=== PATIENT | female | born 1990 ===

== ENCOUNTER 2021-01-20 16:50 | Inpatient (IN) ==
[2021-01-20] MEDS ORDERED: LACTATED RINGERS 1,000 ML IV ONE (17:00)
[2021-01-20 17:29] LABS: Basophils % 0.2 % (0.0-0.8); Eosinophils # 0.1 10*3/uL (0.0-0.87); Eosinophils % 0.5 % (0.00-10.9); Hematocrit 29.7 VOL% (35.7-47.0); Immature Granulocytes % 1.4 %; Immature Granulocytes Absolute 0.14 #; Lymphocytes # 1.8 10*3/uL (1.4-4.0); Lymphocytes % 17.4 % (21.3-54.2); Mean Corpuscular HGB Conc 33.7 GM/DL (32-36); Mean Corpuscular Volume 89.5 FL (87-102); Mean Platelet Volume 12.4 FL (9.6-12.0); Monocytes % 5.2 % (1.7-12.7); Neutrophils % 75.3 % (38.7-73.9); Platelet Count 189 T/CUMM (130-400); Red Blood Count 3.32 MC/CUMM (3.8-5.5); Red Cell Distribution Width 13.5 % (9.3-17.3); White Blood Count 10.2 T/CUMM (4-12)
[2021-01-20 18:24] LABS: Bilirubin,Urine Negative (Negative); Blood, Urine Negative (Negative); Glucose,Urine (UA) Negative (Negative); Ketones,Urine Negative (Negative); Nitrite,Urine Negative (Negative); Protein,Urine 100 MG/DL; RBC,Urine 1 /HPF (0-4); Squamous Epithelial Cell,Urine Occasional /HPF (0-10); Urine Appearance CLEAR (Clear); Urine Color Yellow (Yellow); Urine Specific Gravity 1.012 (1.001-1.035); Urine Urobilinogen < 2.0 EU/DL (0.2-1.0)
[2021-01-20] MEDS ORDERED: NIFEdipine 10 MG CAPSULE PO STA (19:20)
[2021-01-20] MEDS ORDERED: BETAMETH SODIUM PHOS/ACETATE 30 MG/5 ML VIAL IM SCH (19:30)
[2021-01-20 19:44] LABS: Alanine Aminotransferase 13 U/L (13-56); Albumin 2.4 G/DL (3.4-5.0); Alkaline Phosphatase 103 U/L (45-117); Aspartate Amino Transferase 13 U/L (0-37); Bilirubin,Direct < 0.100 MG/DL (0.0-0.20); Bilirubin,Total < 0.39 MG/DL (0.2-1.0); Blood Urea Nitrogen 7 MG/DL (7-18); Calcium 8.3 MG/DL (8.5-10.1); Carbon Dioxide 23 MMOL/L (21-32); Estimated Glom Filtration Rate 128 ML/MIN; Glucose 89 MG/DL (74-106); Osmolality,Calculated 273.5 MOS/KG (273-304); Potassium 3.8 MMOL/L (3.5-5.1); Sodium 139 MMOL/L (136-145); Total Protein 6.1 G/DL (6.4-8.2); Uric Acid 6.5 MG/DL (2.6-6.0)
[2021-01-20 19:45] LABS: INR 0.9; PT Patient Result 10.4 SECS (10.5-12.0); Partial Thromboplastin Time 25.6 SECS (23.9-33.8)
[2021-01-20] MEDS ORDERED: CITRIC ACID/SODIUM CITRATE 30 ML UDCUP PO PRN (20:14)
[2021-01-20] MEDS ORDERED: FAMOTIDINE 20 MG/2 ML VIAL IV PRN (20:14)
[2021-01-20] MEDS ORDERED: ceFAZolin 2,000 MG/50 ML DUPLEX IV ONE (20:14)
[2021-01-20] MEDS ORDERED: MAGNESIUM SULF RIDER 4 GM/100 ML PREMIX IV ONE ×2 (20:16→20:18)
[2021-01-20] MEDS ORDERED: LACTATED RINGERS 1,000 ML IV SCH (20:30)
[2021-01-20] MEDS ORDERED: OXYTOCIN/LR 30 UNIT/1,000 ML BAG IV PRN (20:33)
[2021-01-20] MEDS ORDERED: OXYTOCIN 10 UNIT/ML VIAL ONE (20:39)
[2021-01-20] MEDS ORDERED: LABETALOL 200 MG TABLET PO SCH (21:00)
[2021-01-20] MEDS ORDERED: BUPIVACAINE SPINAL 0.75% 2 ML AMP SPINAL ONE (21:09)
[2021-01-20] MEDS ORDERED: KETOROLAC 30 MG/1 ML VIAL ONE ×2 (21:33)
[2021-01-20] MEDS ORDERED: ONDANSETRON 4 MG/2 ML VIAL ONE (21:33)
[2021-01-20] MEDS ORDERED: propofoL 200 MG/20 ML VIAL IV ONE (21:39)
[2021-01-20] MEDS ORDERED: MIDAZOLAM 2 MG/2 ML VIAL ONE (21:40)
[2021-01-20 22:06] LABS: Cord Venous Blood HCO3 24.5 MMOL/L; Cord Venous Blood PCO2 43.2 MMHG; Cord Venous Blood PO2 29.6
[2021-01-20] MEDS ORDERED: HYDROmorphone 2 MG/1 ML VIAL IV PRN (22:10)
[2021-01-20] MEDS ORDERED: ONDANSETRON 4 MG/2 ML VIAL IV PRN ×2 (22:10→22:24)
[2021-01-20] MEDS ORDERED: hydrOXYzine HCL 25 MG/1 ML VIAL IM PRN (22:10)
[2021-01-20] MEDS ORDERED: diphenhydrAMINE 50 MG/1 ML VIAL IV PRN (22:10)
[2021-01-20] MEDS ORDERED: IBUPROFEN 800 MG TABLET PO PRN (22:24)
[2021-01-20] MEDS ORDERED: ACETAMINOPHEN 325 MG TABLET PO PRN (22:24)
[2021-01-20] MEDS ORDERED: OXYTOCIN/LR 20 UNIT/1,000 ML BAG IV ONE (22:24)
[2021-01-20] MEDS ORDERED: RHO(D) IMMUNE GLOBULIN 300 MCG SYRINGE IM ONE (22:24)
[2021-01-20] MEDS: FUROSEMIDE 40 MG/4 ML VIAL IV SCH (23:31)
[2021-01-21] MEDS ORDERED: KETOROLAC 30 MG/1 ML VIAL IV SCH (04:30)
[2021-01-21] MEDS: KETOROLAC 30 MG/1 ML VIAL IV SCH ×3 (04:46→16:45)
[2021-01-21] MEDS: FUROSEMIDE 40 MG/4 ML VIAL IV SCH ×2 (05:51→11:35)
[2021-01-21] MEDS: LACTATED RINGERS 1,000 ML IV SCH ×2 (05:53→06:12)
[2021-01-21 06:26] LABS: Bilirubin,Urine Negative (Negative); Blood, Urine Negative (Negative); Glucose,Urine (UA) Negative (Negative); Ketones,Urine Negative (Negative); Nitrite,Urine Negative (Negative); Protein,Urine Negative; RBC,Urine <1 /HPF (0-4); Urine Appearance CLEAR (Clear); Urine Color Colorless (Yellow); Urine Specific Gravity 1.004 (1.001-1.035); Urine Urobilinogen < 2.0 EU/DL (0.2-1.0)
[2021-01-21 06:33] LABS: Basophils % 0.2 % (0.0-0.8); Eosinophils # 0.1 10*3/uL (0.0-0.87); Eosinophils % 0.4 % (0.00-10.9); Hematocrit 30.8 VOL% (35.7-47.0); Hemoglobin 10.1 GM/DL (12.0-16.0); Immature Granulocytes % 1.4 %; Immature Granulocytes Absolute 0.22 #; Lymphocytes # 2.9 10*3/uL (1.4-4.0); Lymphocytes % 17.5 % (21.3-54.2); Mean Corpuscular HGB Conc 32.8 GM/DL (32-36); Mean Corpuscular Volume 90.9 FL (87-102); Mean Platelet Volume 12.6 FL (9.6-12.0); Monocytes % 5.2 % (1.7-12.7); Neutrophils % 75.3 % (38.7-73.9); Platelet Count 178 T/CUMM (130-400); Red Blood Count 3.39 MC/CUMM (3.8-5.5); Red Cell Distribution Width 13.5 % (9.3-17.3); White Blood Count 16.3 T/CUMM (4-12)
[2021-01-21] MEDS: DOCUSATE SODIUM 100 MG CAPSULE PO SCH ×2 (08:17→21:40)
[2021-01-21] MEDS: MULTIVITAMIN (PRENATAL) TABLET PO SCH (08:17)
[2021-01-21] MEDS: MAGNESIUM HYDROXIDE SUSP 30 ML UDCUP PO PRN (16:44)
[2021-01-21] MEDS: METOCLOPRAMIDE 10 MG TABLET PO SCH (16:44)
[2021-01-21] MEDS: SIMETHICONE CHEW 80 MG TABLET PO PRN (16:44)
[2021-01-22] MEDS: METOCLOPRAMIDE 10 MG TABLET PO SCH ×2 (00:30→08:56)
[2021-01-22 08:29] VITALS: BP 133/92
[2021-01-22] MEDS: SIMETHICONE CHEW 80 MG TABLET PO PRN (08:55)
[2021-01-22] MEDS: DOCUSATE SODIUM 100 MG CAPSULE PO SCH (08:56)
[2021-01-22] MEDS: MAGNESIUM HYDROXIDE SUSP 30 ML UDCUP PO PRN (08:56)
[2021-01-22] MEDS: MULTIVITAMIN (PRENATAL) TABLET PO SCH (08:56)
[2021-01-22] MEDS ORDERED: DIPH/TET/ACEL PERT BOOSTER VACCINE 0.5 ML VIAL IM ONE (10:55)
== END 2021-01-22 13:09 | disposition home or self-care (01) | DRG 540 ==
LOC: N.LDOUT 16:50 → N.LD 16:52 → N.OB 01-21 16:19
PROVIDERS: ADMIT Obstetrics & Gynecology; ATTEND Obstetrics & Gynecology